=== PATIENT | male | born 1950 | race Caucasian/White ===

== ENCOUNTER 2021-04-27 06:29 | Emergency (ER) | payer OTHER, SELFPAY ==
--- NOTE | 2021-04-27 06:32 | ED_ITS ---
HPI - Nausea/Vomiting/Diarrhea <Tristen Vogt DO - Last Filed: 04/28/21 06:07> General Chief complaint: Nausea/Vomiting/Diarrhea Stated complaint: diarrhea since saturday/low grade fever Time Seen by Provider: 04/27/21 06:32 History of Present Illness HPI Narrative: 70-year-old male nonsmoker with history of hypertension and hyperlipidemia presents with a chief complaint of frequent watery stools for the past 3-4 days. He states he is going ?all day? every day, he has gone 4 times already this morning. He states he has generalized abdominal cramping that se ems to be filled until a bowel movement which improves it. He has had no fever or chills. He has nausea but denies any vomiting. Anything he eats seems to go right through him. He denies dysuria, frequency or urgency. He denies any dizziness or lightheadedness but has become significantly fatigued. He traveled here from [place] about 10 days ago and denies any exposure to other ill persons, those with COVID, or bad food. He states that he was on antibiotics for a bad tooth about 1 week before his travels. He denies any blood or dark and tarry element to his stool Related Data Previous Rx's Medication Instructions Recorded vancomycin 125 mg capsule 125 mg PO QID 10 Days #40 cap 04/27/21 vancomycin 125 mg capsule 125 mg PO QID 10 Days #40 cap 04/27/21 Allergies Allergy/AdvReac Type Severity Reaction Status Date / Time No Known Drug Allergies Allergy Verified 04/27/21 06:39 Review of Systems <DO Arvind Love Last Filed: 04/28/21 06:07> Review of Systems Narrative: GENERAL: See HPI HEENT: Denies sinus pain, ear pain, sore throat, difficulty swallowing, dizziness. RESPIRATORY: Denies dyspnea, cough, wheezing, hemoptysis, sputum. CARDIOVASCULAR: Denies chest pain, palpitations, orthopnea, edema, GASTROINTESTINAL: See HPI : Denies dysuria, frequency, incontinence, hematuria, urinary retention. MUSCULOSKELETAL: denies weakness, joint pain, or bony pain SKIN: Denies rash, skin lesions, or other NEUROLOGIC: Denies weakness, headache, numbness, change in speech, confusion, seizures, incoordination. PSYCHIATRIC: No concerning psychosocial issues. 12 point review of systems is negative except for those stated above Patient History <DO Arvind Love Last Filed: 04/28/21 06:07> Social History Smoking Status: Never smoker Exam <DO Arvind Love Last Filed: 04/28/21 06:07> Narrative Exam Narrative: GENERAL: [70] year old patient appears stated age. Well- developed patient, in mild distress. HEAD: Atraumatic. Normocephalic. EYES: Pupils equal round and reactive. Extraocular motions intact. No scleral icterus. No injection or drainage. ENT: Nose without bleeding, purulent drainage. Throat without erythema, tonsillar hypertrophy or exudate. Airway patent. NECK: Trachea midline. Non tender CARDIOVASCULAR: Regular rate and rhythm without murmurs, gallops, or rubs. RESPIRATORY: Clear to auscultation. Breath sounds equal bilaterally. No wheezes, rales, or rhonchi. GASTROINTESTINAL: Abdomen soft, mild lower abdominal tenderness without distention. Increased bowel sounds in all 4 quadrants EXTREMITIES: No edema or joint tenderness. BACK: Nontender without deformity or crepitance. No flank tenderness. NEURO: AOx3. SKIN: No rash or erythema of visible areas Initial Vital Signs Initial Vital Signs: Vital Signs Temperature 97 F L 04/27/21 06:39 Pulse Rate 79 04/27/21 06:39 Respiratory Rate 17 04/27/21 06:39 Blood Pressure 124/84 04/27/21 06:39 Pulse Oximetry 98 04/27/21 06:39 <[place] DO - Last Filed: 04/27/21 09:49> Initial Vital Signs Initial Vital Signs: Vital Signs Temperature 97 F L 04/27/21 06:39 Pulse Rate 79 04/27/21 06:39 Respiratory Rate 17 04/27/21 06:39 Blood Pressure 124/84 04/27/21 06:39 Pulse Oximetry 98 04/27/21 06:39 Course <DO Arvind Love Last Filed: 04/28/21 06:07> Course Course Narrative: Patient has been informed that stool sample is a critical element of this evaluation. IV fluids and labs ordered. Patient will be signed out to Dr. Monique for final disposition Orders Ordered: Discontinued Medications Sodium Chloride (Normal Saline 0.9%) 1,000 mls @ 1,000 mls/hr IV BOLUS ONE Stop: 04/27/21 07:42 Last Infusion: 04/27/21 08:59 Dose: 0 mls/hr Documented by: Admin: 04/27/21 06:51 Dose: 1,000 mls/hr Documented by: JAVIER Vital Signs Vital signs: Vital Signs - 8 hr 04/27/21 06:39 04/27/21 06:58 04/27/21 07:00 Temperature 97 F L Pulse Rate 79 74 74 Respiratory Rate 17 Blood Pressure 124/84 Pulse Oximetry 98 96 96 04/27/21 07:27 04/27/21 07:30 04/27/21 09:42 Temperature Pulse Rate 72 72 71 Respiratory Rate 14 9 L Blood Pressure 108/63 105/67 108/68 Pulse Oximetry 97 96 98 <[place] DO - Last Filed: 04/27/21 09:49> Orders Ordered: Discontinued Medications Sodium Chloride (Normal Saline 0.9%) 1,000 mls @ 1,000 mls/hr IV BOLUS ONE Stop: 04/27/21 07:42 Last Infusion: 04/27/21 08:59 Dose: 0 mls/hr Documented by: Admin: 04/27/21 06:51 Dose: 1,000 mls/hr Documented by: JAVIER Vital Signs Vital signs: Vital Signs - 8 hr 04/27/21 06:39 04/27/21 06:58 04/27/21 07:00 Temperature 97 F L Pulse Rate 79 74 74 Respiratory Rate 17 Blood Pressure 124/84 Pulse Oximetry 98 96 96 04/27/21 07:27 04/27/21 07:30 04/27/21 09:42 Temperature Pulse Rate 72 72 71 Respiratory Rate 14 9 L Blood Pressure 108/63 105/67 108/68 Pulse Oximetry 97 96 98 MDM - Nausea/Vomiting/Diarrhea <DO Arvind Love Last Filed: 04/28/21 06:07> Lab Data Result diagrams: 04/27/21 06:48 04/27/21 06:48 Labs: Lab Results 04/27/21 04/27/21 04/27/21 Range/Units 06:48 06:48 07:47 WBC 11.3 H (4.5-11.0) X10^3/uL RBC 4.92 (4.5-5.9) X10^6/uL Hgb 15.5 (13.5-17.5) g/dL Hct 46.1 (41-53) % MCV 93.7 (80-100) fL MCH 31.6 (26-34) PG MCHC 33.7 (30-36) % RDW 13.0 (11.6-14.8) % Plt Count 187 (150-400) X10^3/uL Neut % (Auto) 73.5 (50-75) % Lymph % (Auto) 11.0 L (25-40) % Clayton % (Auto) 12.7 (3-14) % Eos % (Auto) 2.2 (2-4) % Baso % (Auto) 0.6 (0-2) % Neut # (Auto) 8300 H (6010-4342) /uL Lymph # (Auto) 1200 (4819-4731) /uL Clayton # (Auto) 1400 H (0-900) /uL Eos # (Auto) 200 (0-450) /uL Baso # (Auto) 100 (0-100) /uL Sodium 136 L (137-145) mmol/L Potassium 4.4 (3.4-5.1) mmol/L Chloride 104 (98-107) mmol/L Carbon Dioxide 24 (22-32) mmol/L BUN 17 (9-20) mg/dL Creatinine 1.48 H (0.66-1.25) mg/dL Estimated GFR 46.9 L (>60) mL/min BUN/Creatinine Ratio 11.5 (6-22) Glucose 98 (80-110) mg/dL Calcium 9.0 (8.4-10.2) mg/dL Magnesium 2.3 (1.6-2.3) mg/dL Total Bilirubin 1.6 H (0.2-1.3) mg/dL AST 26 (17-59) IU/L ALT 26 (<50) IU/L Alkaline Phosphatase 96 (38-126) U/L Total Protein 7.0 (6.3-8.2) g/dL Albumin 4.2 (3.5-5.0) g/dL Globulin 2.8 (1.7-4.1) g/dL Albumin/Globulin Ratio 1.5 (1.0-2.8) Stl C. cayetanensis PCR Not detected (Not Detect) Stool Rotavirus (PCR) Not detected (Not Detect) Stool Adenovirus (PCR) Not detected (Not Detect) Stool Astrovirus (PCR) Not detected (Not Detect) Stool Cryptosporidium PCR Not detected (Not Detect) Stl E.coli Shiga Tox PCR Not detected (Not Detect) St Sh/Enteroin Ecoli PCR Not detected (Not Detect) Stool E coli O157 PCR Not detected (Not Detect) Stl Enterotoxigenic E PCR Not detected (Not Detect) Stool EPEC (PCR) Not detected (Not Detect) Stl E. histolytica PCR Not detected (Not Detect) Stool Giardia Lamblia PCR Not detected (Not Detect) Stool Sapovirus (PCR) Not detected (Not Detect) Stl P. shigelloides PCR Not detected (Not Detect) St Y.enterocolitica PCR Not detected (Not Detect) Stool Vibrio (PCR) Not detected (Not Detect) Stl Vibrio cholerae PCR Not detected (Not Detect) Stl Enteroaggr Ecoli PCR Not detected (Not Detect) Stl Norovirus GI/GII PCR Not detected (Not Detect) Campylobacter (PCR) Not detected (Not Detect) C. difficile Tox (PCR) Detected H (Not Detect) Salmonella (PCR) Not detected (Not Detect) Point of Care Testing Stool Occult Blood Positive <[place], - Last Filed: 04/27/21 09:49> Lab Data Attestation: I reviewed the patient's lab results. Labs: Lab Results 04/27/21 04/27/21 04/27/21 Range/Units 06:48 06:48 07:47 WBC 11.3 H (4.5-11.0) X10^3/uL RBC 4.92 (4.5-5.9) X10^6/uL Hgb 15.5 (13.5-17.5) g/dL Hct 46.1 (41-53) % MCV 93.7 (80-100) fL MCH 31.6 (26-34) PG MCHC 33.7 (30-36) % RDW 13.0 (11.6-14.8) % Plt Count 187 (150-400) X10^3/uL Neut % (Auto) 73.5 (50-75) % Lymph % (Auto) 11.0 L (25-40) % Clayton % (Auto) 12.7 (3-14) % Eos % (Auto) 2.2 (2-4) % Baso % (Auto) 0.6 (0-2) % Neut # (Auto) 8300 H (9598-4640) /uL Lymph # (Auto) 1200 (1396-4925) /uL Clayton # (Auto) 1400 H (0-900) /uL Eos # (Auto) 200 (0-450) /uL Baso # (Auto) 100 (0-100) /uL Sodium 136 L (137-145) mmol/L Potassium 4.4 (3.4-5.1) mmol/L Chloride 104 (98-107) mmol/L Carbon Dioxide 24 (22-32) mmol/L BUN 17 (9-20) mg/dL Creatinine 1.48 H (0.66-1.25) mg/dL Estimated GFR 46.9 L (>60) mL/min BUN/Creatinine Ratio 11.5 (6-22) Glucose 98 (80-110) mg/dL Calcium 9.0 (8.4-10.2) mg/dL Magnesium 2.3 (1.6-2.3) mg/dL Total Bilirubin 1.6 H (0.2-1.3) mg/dL AST 26 (17-59) IU/L ALT 26 (<50) IU/L Alkaline Phosphatase 96 (38-126) U/L Total Protein 7.0 (6.3-8.2) g/dL Albumin 4.2 (3.5-5.0) g/dL Globulin 2.8 (1.7-4.1) g/dL Albumin/Globulin Ratio 1.5 (1.0-2.8) Stl C. cayetanensis PCR Not detected (Not Detect) Stool Rotavirus (PCR) Not detected (Not Detect) Stool Adenovirus (PCR) Not detected (Not Detect) Stool Astrovirus (PCR) Not detected (Not Detect) Stool Cryptosporidium PCR Not detected (Not Detect) Stl E.coli Shiga Tox PCR Not detected (Not Detect) St Sh/Enteroin Ecoli PCR Not detected (Not Detect) Stool E coli O157 PCR Not detected (Not Detect) Stl Enterotoxigenic E PCR Not detected (Not Detect) Stool EPEC (PCR) Not detected (Not Detect) Stl E. histolytica PCR Not detected (Not Detect) Stool Giardia Lamblia PCR Not detected (Not Detect) Stool Sapovirus (PCR) Not detected (Not Detect) Stl P. shigelloides PCR Not detected (Not Detect) St Y.enterocolitica PCR Not detected (Not Detect) Stool Vibrio (PCR) Not detected (Not Detect) Stl Vibrio cholerae PCR Not detected (Not Detect) Stl Enteroaggr Ecoli PCR Not detected (Not Detect) Stl Norovirus GI/GII PCR Not detected (Not Detect) Campylobacter (PCR) Not detected (Not Detect) C. difficile Tox (PCR) Detected H (Not Detect) Salmonella (PCR) Not detected (Not Detect) Point of Care Testing Stool Occult Blood Positive MDM Narrative Medical decision making narrative: Dr monique: Received turned over from Dr. Vogt. Reviewed patient's history and physical and labs. His GI panel today is positive for C diff. This does explain the symptoms that he is having. He was recently on antibiotics. His labs are unremarkable. Sodium is unremarkable. He has a benign abdominal exam. Low suspicion for toxic megacolon. I did discuss C diff with him. Patient's was at bedside is a nurse and she understands this disease process. We will start him on oral vancomycin. Was electronically transmitted to the pharmacy of his choice. He was given return precautions and follow-up instructions. He expressed understanding and agreement. Discharge Plan Departure Patient Disposition: Home Clinical Impression: Clostridium difficile diarrhea Instructions: Clostridium difficile Infection Activity Restrictions/Additional Instructions: Be sure to increase your fluid intake. I recommend you contact your primary doctor so that you have an appointment with him/her when you return home. Take the antibiotic as directed. Return to the emergency department for increasing abdominal pain, fevers, inability to tolerate oral intake or any other new or worsening symptoms Prescriptions: New vancomycin 125 mg capsule 125 mg PO QID 10 Days Qty: 40 RF: 0 vancomycin 125 mg capsule 125 mg PO QID 10 Days Qty: 40 RF: 0
[2021-04-27 06:39] VITALS: BP 124/84; PULSE 79; RESP 17; TEMP 36.1; O2SAT 98; BMI 26.9
[2021-04-27] MEDS: SODIUM CHLORIDE 0.9% 1,000 ML 1000 ML IV (06:51)
[2021-04-27 06:55] LABS: Add Manual Diff / Slide Review NO; Basophils Absolute Auto 100 /uL (0-100); Basophils Percent Auto 0.6 % (0-2); Eosinophils Absolute Auto 200 /uL (0-450); Eosinophils Percent Auto 2.2 % (2-4); Hematocrit 46.1 % (41-53); Hemoglobin 15.5 g/dL (13.5-17.5); Lymphocytes Absolute Auto 1200 /uL (1100-4500); Mean Corpuscular HGB Conc 33.7 % (30-36); Mean Corpuscular Hemoglobin 31.6 PG (26-34); Mean Corpuscular Volume 93.7 fL (80-100); Monocytes Absolute Auto 1400 /uL (0-900); Monocytes Percent Auto 12.7 % (3-14); Neutrophils Absolute Auto 8300 /uL (1500-7000); Neutrophils Percent Auto 73.5 % (50-75); Platelet Count 187 X10^3/uL (150-400); Red Blood Cell Count 4.92 X10^6/uL (4.5-5.9); White Blood Cell Count 11.3 X10^3/uL (4.5-11.0)
[2021-04-27 06:58] VITALS: PULSE 74; O2SAT 96
[2021-04-27 07:00] VITALS: PULSE 74; O2SAT 96
[2021-04-27 07:06] LABS: Alanine Aminotransferase 26 IU/L (<50); Albumin 4.2 g/dL (3.5-5.0); Albumin Globulin Ratio 1.5 (1.0-2.8); Alkaline Phosphatase 96 U/L (38-126); Aspartate Aminotransferase 26 IU/L (17-59); BUN Creatinine Ratio 11.5 (6-22); Bilirubin Total 1.6 mg/dL (0.2-1.3); Blood Urea Nitrogen 17 mg/dL (9-20); Carbon Dioxide 24 mmol/L (22-32); Chloride 104 mmol/L (98-107); Estimated Glomerular Filt Rate 46.9 mL/min (>60); Globulin 2.8 g/dL (1.7-4.1); Glucose 98 mg/dL (80-110); HEMOLYSIS < 15 (0-50); Magnesium 2.3 mg/dL (1.6-2.3); Potassium 4.4 mmol/L (3.4-5.1); Sodium 136 mmol/L (137-145)
[2021-04-27 07:27] VITALS: BP 108/63; PULSE 72; RESP 14; O2SAT 97
[2021-04-27 07:30] VITALS: BP 105/67; PULSE 72; RESP 9; O2SAT 96
[2021-04-27 09:13] LABS: Adenovirus F 40/41 Not Detected (Not Detect); Astrovirus Not Detected (Not Detect); Campylobacter Not Detected (Not Detect); Clostridium difficile toxin AB Detected (Not Detect); Cryptosporidium Not Detected (Not Detect); Cyclospora cayetanensis Not Detected (Not Detect); Entamoeba histolytica Not Detected (Not Detect); Enteroaggregative E.coli Not Detected (Not Detect); Enteropathogenic E.coli Not Detected (Not Detect); Enterotoxigenic E.coli It/st Not Detected (Not Detect); Giardia lamblia Not Detected (Not Detect); Norovirus GI/GII Not Detected (Not Detect); Plesiomonsa shigelloides Not Detected (Not Detect); Rotavirus A Not Detected (Not Detect); Salmonella Not Detected (Not Detect); Sapovirus Not Detected (Not Detect); Shiga-like toxin-prod E.coli Not Detected (Not Detect); Shigella/Enteroinvasive E.coli Not Detected (Not Detect); Vibrio Not Detected (Not Detect); Vibrio cholerae Not Detected (Not Detect); Yersinia enterocolitica Not Detected (Not Detect)
[2021-04-27 09:42] VITALS: BP 108/68; PULSE 71; O2SAT 98
[2021-04-28 14:41] LABS: C difficie Toxins A and B, EIA Positive (Negative)
== END 2021-04-27 09:42 | disposition home or self-care (01) ==
PROVIDERS: Emergency Medicine; Emergency Provider Emergency Medicine
DX: A04.72 Enterocolitis due to Clostridium difficile, not specified as recurrent (principal)
CPT/HCPCS: 36415; 80053; 82272; 83735; 85025; 87324; 87507; 96360; 96361; 99284